=== PATIENT | female | born 1950 | race Caucasian/White ===

== ENCOUNTER → 2020-05-17 10:11 | Outpatient (CLI) | payer MEDICARE, OTHER, SELFPAY ==
--- NOTE | 2020-05-17 | DI.RAD.S_ITS ---
PROCEDURE: FL BARIUM SWALLOW W SPEECH INDICATIONS: DYSPHAGIA COMPARISON: None. TECHNIQUE: Examination was conducted in conjunction with speech pathology per standard protocol. In the lateral projection, filming was performed of the patient swallowing. AP projection filming may also be performed with patient swallowing. COMPARISON: FINDINGS: Function: The oral preparatory phase appears normal, with proper containment. The subsequent oral propulsive phase, pharyngeal phase, and esophageal phase of swallowing also appear normal with all proffered substances. No laryngotracheal penetration or aspiration. No pathologic vallecular pooling. Morphology: No cricopharyngeal bar is identified. No cervical esophageal webs. No Zenker's diverticulum. No strictures. IMPRESSION: No acute disease found, please also refer to the dedicated speech therapy swallowing evaluation report, which will be independently generated. Dictated by: Asim Griffiths M.D. on 05/17/2020 at 11:40 Approved by: Asim Griffiths M.D. on 05/17/2020 at 11:40
--- NOTE | 2020-05-17 17:27 | ST.SWALLOW ---
Visit Care Team Role Provider Type Attending Provider Primary Care Provider Referring Provider Specialty: Address: Phone: Fax: Email: ST Modified Barium Swallow Study [employer] Modified Barium Swallow Study Start: 05/17/20 16:26 Freq: Status: Active Protocol: Document 05/17/20 16:27 LNK (Rec: 05/17/20 17:26 LNK [id number]) Modified Barium Swallow Study Total Time Visit Start Time 10:30 Visit Stop Time 11:00 Total Visit Minutes [address] Travis Reason for Referral difficulty swallowing Setting Setting Outpatient Care Patient Information Identification Type Name,Date of Patient History Pt was seen for a Modified Barium Swallow Study (MBSS). She was referred by her physician secondary to difficulty swalloiwng. Pt described her swallowing as being like swallowing a telephone pole. She described her swallowing as being effortful and at times she needs to lift up her arms like a touchdown in order for her foods/liquids to pass into her esophagus. She also reported choking at times, especially with rice, crackers and potatoes (i.e., hashbrowns). Additionally, pt reported tighness in her neck on the right side and descibs foods sticking in her throat , pointing to her sternal notch area. Pt has a medical history of an ACDF that required posterior and anterior approaches to her cervical spine secondary to cervical stenosis. This surgery was in March 2017. The pt's medical records regarding her surgery and inpatient followup were reviewed prior to the MBSS. Subjective Observations Pt appeared to be anxious, indicating that she could not swallow her saliva while she was describing her medical history. She spoke rapidly and had a notebook with her that had questions she wanted to ask. All questions were answered, referred back to her physician as needed. Pt was seated in the fluoroscopy chair. Instructions and procedures were described for the pt, who indicated she understtod and agreed to proceed. Patient Positioning Position View Lateral Imaging Lateral View Textures Administered Trials Presented Thin Liquid via Spoon,Thin Liquid via Cup,Pudding Thick Liquid via Spoon,Regular Textures,Barium Tablet Oral Phase Source: MBSIMP (TM) (C) Bolus Specific Scoring Grid Lip Closure WFL Tongue Control During Bolus Hold WFL Bolus Prep/Mastication WFL Bolus Transport/Lingual Motion Mild Impairment A/P Lingual Propulsion Delay Yes Oral Residue Minimal Impairment Residue Clearing Minimal Impairment Nasal Regurgitation No Additional Oral Phase Observations Pt's OME indicated dentition of natural teeth and partial denture (upper). There were missing teeth on the lower arch. Diadochokinesis was WNL. For both liquids and solids, the pt demonstrated difficulty with A-P propulsion of the bolus, requiring her to throw her head back in order to swallow. At times this movement creating difficulty with reading the video. Pharyngeal Phase Source: MBSIMP (TM) (C) Bolus Specific Scoring Grid Delayed Initiation of Pharyngeal Swallow Yes: Premature spillage to the valeculla Soft Palate Elevation WFL Tongue Base Strength/Range of Motion Minimal Impairment Residue Along the Tongue Base Yes Clearance of Residue Along Tongue Base Minimal Impairment Laryngeal Elevation Moderate Impairment Anterior Hyoid Movement Moderate Impairment Epiglottic Range of Motion WFL Vallecular Residue Yes Clearance of Vallecular Residue Mild Impairment Laryngeal Vestibular Closure WFL Pharyngeal Stripping Wave Mild Impairment Posterior Pharyngeal Wall Residue Yes Clearance of Posterior Pharyngeal Wall Minimal Impairment Residue Upper Esophageal Sphincter Opening Moderate Impairment Residue in the Pyriform Sinuses Yes Clearance of Residue in the Pyriform Minimal Impairment Sinuses Esophageal Clearance Upright Position WFL Pharyngoesophageal Backflow Observed No Additional Pharyngeal Phase Observations Premature spillage to the valeculla was observed. Hyolaryngeal elevation was reduced for both the forward movement of the hyoid and the elevation of the larynx. This did not impact the epiglottal inversion nor the laryngeal vestibular seal. However there there was tongue base weakness noted that resulted in pooling with in the valeculla, the pyriform sinuses and the posterior pharyngeal wall. The pooling was cleared with subsequent swallows. No penetration or aspiration was observed. The pharynx shape appeared to be directly impacted by the ACDF cage and hardware. The upper portion of the pharynx was curved anteriorly from the oropharynx to the laryngopharynx. At the laryngopharynx, there was a narrowing of the pharynx to the UES. The pt's swallows appeared to be effortful in that she had her head back and seemed to force the swallow . A/P View A/P View Observations Additional Observations In addition to the observations noted above, there appeared to be a limited opening of the UES along with limited duration of that opening. This, along with the narrowing of the pharynx, may explain the effort the pt seems to need in order for her to swallow. Her difficulty swallowing does not appear to be oropharyngeal dysphagia, but rather a mechanical effect of the ACFD surgery and the hardware needed to address her cervical stenosis. As a result, Dysphagia therapy is not warranted at this point. Possible a referral to GI to address the narrowed UES may be necessary Clinical Impressions Dysphagia Type None Patient Appropriate for Therapy No Recommendations Treatment Plan Recommended Referrals Primary Care Physician,GI Consult
== END ==
PROVIDERS: PCP Family Medicine; Referring Provider Family Medicine; Visit Provider Family Medicine
DX: R13.14 Dysphagia, pharyngoesophageal phase (principal)
CPT/HCPCS: 74230; 92611

== ENCOUNTER → 2021-08-14 18:37 | Outpatient (CLI) | payer MEDICARE, OTHER, SELFPAY ==
--- NOTE | 2021-08-14 18:42 | DI.MRI.S_ITS ---
PROCEDURE: MR SHOULDER LT WO CON INDICATIONS: pain in left shoulder TECHNIQUE: Noncontrast oblique coronal T2 fast spin echo with fat saturation, oblique sagittal T1 spin echo and T2 fast spin echo with fat saturation, axial T1 spin echo and T2 fast spin echo with fat saturation through the shoulder. COMPARISON: [facility], CR, XR SHOULDER 2+ VIEWS LEFT, 06/20/2021, 9:58. [facility], MR, SHOULDER WITHOUT CONTRAST, 02/14/2017, 17:05. FINDINGS: Image quality: Excellent. Rotator cuff: There is mild tendinopathy of the supraspinatus and infraspinatus with a mild bursal surface partial-thickness tear involving the anterior fibers extending to the leading edge. This measures approximately 1.2 cm in anteroposterior dimension. No full-thickness tear or tendon retraction. There is minimal bursal surface fraying in the distal infraspinatus. There is mild tendinopathy of the subscapularis with mild partial tearing distally at its insertion. Teres minor appears intact. Sagittal images demonstrate no fatty muscle atrophy. Bones and bursae: No bone marrow contusions or fractures. No acromioclavicular joint degeneration. The acromion demonstrates conventional anatomy, without an os acromiale. A small amount of subacromial/subdeltoid bursal fluid is present. Capsule and soft tissues: There is mild degenerative signal within the posterosuperior labrum. The long head of the biceps tendon demonstrates mild segmental tendinopathy proximally with mild intrasubstance longitudinal partial tearing. There is slight medial displacement of the biceps tendon secondary to partial tearing of the subscapularis. The rotator interval appears normal, without fibrosis. The coracohumeral ligament is normal in thickness. IMPRESSION: 1. Mild partial-thickness bursal surface tearing in the distal supraspinatus involving its anterior fibers without a full-thickness tear or tendon retraction. Mild bursal surface fraying also noted in the distal infraspinatus. Findings appear similar to the prior study. 2. Mild tendinopathy with mild partial tearing at its insertion appear progressed compared to the prior study. 3. Segmental tendinopathy in the proximal biceps tendon with mild interstitial longitudinal partial tearing as well as slight medial subluxation secondary to partial tearing of the subscapularis. 4. Small amount of subacromial/subdeltoid bursal fluid. Dictated by: Oz Canada M.D. on 08/15/2021 at 13:26 Approved by: Oz Canada M.D. on 08/15/2021 at 13:41
== END ==
PROVIDERS: PCP Family Medicine; Referring Provider Orthopaedic Surgery; Visit Provider Orthopaedic Surgery
DX: M75.112 Incomplete rotator cuff tear or rupture of left shoulder, not specified as traumatic (principal); M25.512 Pain in left shoulder
CPT/HCPCS: 73221

== ENCOUNTER 2021-10-30 15:15 | Outpatient (RCR) | payer OTHER, SELFPAY ==
--- NOTE | 2021-10-08 17:15 | PT.OPPOC ---
Physical, Occupational & Speech Therapy At [facility] Current Diagnoses Stiffness of unspecified shoulder, not elsewhere classified (10/08/21) Cervicalgia (10/08/21) Muscle weakness (generalized) (10/08/21) Strain of muscle, fascia and tendon at neck level, initial encounter (10/08/21) Visit Care Team Role Provider Type Lobo Bah MD Primary Care Provider Non-Staff Specialty: Family Practice Address: [address] [place] [address], [id number] Email: Hernán Senior MD Attending Provider Physician Family Provider Referring Provider Specialty: Orthopedic Surgery Address: [address] [place] [address], [id number] Email: Plan Of Care PT-OP-T Assessment and Plan Start: 10/05/21 16:29 Freq: Status: Active Protocol: Document 10/08/21 09:02 LRN (Rec: 10/08/21 12:45 LRN [id number]) Physical Therapy Assessment Rehab Potential Rehabilitation Potential Fair Evaluation Complexity Number of Personal Factors/Comorbidities 3 or More Number of Body Systems Impaired 4 or More Clinical Presentation at Evaluation Evolving Impairments Impairments Activity Tolerance,Pain,ROM, Soft Tissue Mobility,Strength Goals Four Impairment Decrease neck pain Impairment Sharp burning pain 6-7/10 with reading. Skilled Nursing Goal (LTG) Improve neck static positioning tolerance for reading 15' or more with tolerable pain. LTG Duration 12/21/21 Three Impairment Improve shoulder mobility Impairment Shoulder pain rated 4/10. AROM in deg's (sitting): Flex 167 R, 145 L; AB 153 R, 155 L . Skilled Nursing Goal (LTG) Improve bilateral shoulder AROM in order to decrease shoulder pain when pt reachs up (to cupboards) with pain 1- 2/10. LTG Duration 12/21/21 Two Impairment Decreasing pain in neck/ shoulder Impairment Neck & bilateral shoulder pain rated 4/10, sleeping 3 hours at a time per night. Skilled Nursing Goal (LTG) Decrease neck/shoulder pain to 2/10 or less to improve hours of sleep at night, up to 4 hours at a time per night. LTG Duration 12/21/21 One Impairment Pt lacks self care HEP Short Term Goal (STG) Pt will be independent in a self care HEP of cervical Isometric and AROM ex's STG Duration 10/19/21 Skilled Nursing Goal (LTG) Pt will be independent in a self care HEP of shoulder strenghthening ex's and self STM of well healed scars of the neck. LTG Duration 12/21/21 Assessment Summary Assessment Pt presents with soft tissue dysfuntion of the neck and shoulders due to mechanical changes in the cervical spine. The pt appears to also have decreased tissue mobility due to scar tissue binding at her well healed scars of the upper back and neck. She has weakness in her neck and shoulders with the left side being worse than the right. The pt is finding her neck pain limits her ability to static positioning and sleeping at night due to pain. It is not expected that we will be limited in improving her neck mobility due to the hardware in her neck limiting mobility, but improving her strength may help improve her neck stability and tolerance to static positioning for activity such as reading. She has limited bilateral shoulder mobility and weakness (L>R) interferring with her ability to reach overhead to high cupboards. Mobilization of the thoracic spine and use of K-tape to improve scar mobility may help to improve her shoulder mobility. The pt will benefit from skilled phyiscal therapy to work towards achieving the above stated goals. Physical Therapy Plan Frequency and Duration Duration of Treatment 8 weeks Plan of Care Start Date 10/08/21 Plan of Care End Date 12/21/21 Therapeutic Interventions Therapeutic Interventions Aquatic Therapy,Home Exercise Program,Joint Mobilizations, Manual Therapy,Neuromuscular Re-education,Patient/Caregiver Education,Self-Care/Home Management,Soft Tissue Mobilization,Taping, Therapeutic Activities, Therapeutic Exercises Modalities Cold Pack/Ice Massage,Hot Packs Other Referrals/Consults Referrals/Consults Recommended Speech referral to assess and treat for swallowing difficulty. Next Visit Focus/Plan Next Note Type Treatment Note Next Visit Plan STM of neck/upper back, JMT for thoracic spine and bilateral shoulders, Ther Ex w/HEP: Neck AROM, shoulder AROM, postural correction ex' s (including pec stretch) Strengthening: Bill cervical and Conc/Ecc bilateral shoulders. End MH or cryotherapy. Plan of Care Dates Plan of Care Start Date 10/08/21 Plan of Care End Date 12/21/21 Electronically Signed by: Lashanda Danielle, PT 10/08/21 1752 If you are in agreement with this Plan of Care, please return a signed and dated copy. I have reviewed this Plan of Care and certify that the skilled therapy services above are required to meet the patient?s needs. Physician Signature Date Printed Name and Credentials Clinical Instructor Signature Printed Name and Credentials
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
== END 2021-10-31 13:27 ==
LOC: PHYS 15:15
PROVIDERS: Family Provider Orthopaedic Surgery; PCP Family Medicine; Referring Provider Orthopaedic Surgery; Visit Provider Orthopaedic Surgery
DX: M54.2 Cervicalgia (principal); S16.1XXA Strain of muscle, fascia and tendon at neck level, initial encounter; M62.81 Muscle weakness (generalized); M25.619 Stiffness of unspecified shoulder, not elsewhere classified
CPT/HCPCS: 97110; 97140; 97162; 97535

== ENCOUNTER 2022-01-15 12:30 | Outpatient (RCR) | payer OTHER, MEDICARE, SELFPAY ==
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
--- NOTE | 2021-12-05 16:07 | ST.IPDYTX ---
Visit Care Team Role Provider Type Lobo Bah MD Family Provider Non-Staff Primary Care Provider Specialty: Family Practice Address: [address] [place] [address], [id number] Email: Hernán Senior MD Attending Provider Physician Referring Provider Specialty: Orthopedic Surgery Address: [address] [place] [address], [id number] Email: DRILL SHARPENER OPERATOR Dysphagia Treatment DRILL SHARPENER OPERATOR Clinical Instructor Line Start: 11/28/21 16:59 Freq: Status: Active Protocol: Document 12/05/21 16:06 ERA (Rec: 12/05/21 16:07 ERA [id number]) Clinical Instructor Signature Clinical Instructor Clinical Instructor Yes DRILL SHARPENER OPERATOR Dysphagia Treatment Start: 12/05/21 14:11 Freq: Status: Active Protocol: Document 12/05/21 14:13 EK (Rec: 12/05/21 14:23 EK [id number]) Dysphagia Treatment Session Time Visit Start Time 10:30 Visit Stop Time 11:30 Total Visit Minutes 60 Visit Information Visit Number Treatment Visit 2 Plan of Care Dates 11/28/21-03/25/22 Insurance Information Apirion Injury Setting Assessment Location Outpatient Care Visit Type Note Type Treatment Note Next Note Type Next Note Type Treatment Note Patient Information Identification Type Name Subjective Observations Pt arrived on time and unaccompanied. Pt reported that yesterday she had a choking episode. Pt stated that she suspects this episode occurred because she was eating too much too quickly. Session conducted and note written by student DRILL SHARPENER OPERATOR Laurel Shea under DRILL SHARPENER OPERATOR supervision. Treatment Liquids Trialed Thin Pharyngeal Strategies Sitting Upright (90 deg),Chin Tuck Treatment Activities Pt sipped water over the course of the session. Pt drank in a timely manner but occasionally utilized a rocking head motion to transport bolus. Pt reported that at times, she can feel residue from water in her throat which most clears with a head tilt up or chin tuck. Education provided RE the possible benefits the pt is experiencing from utilizing these strategies. No overt signs of penetration or aspiration were noted. Education RE normal vs abnormal swallow function was provided orally and with animated video. Trained pt in exercises to increase airway protection, base of tongue strength, pharyngeal clearance . The pt performed all exercises as instructed. Will monitor and adapt exercises as needed. Assessment Patient Response to Treatment Good Rehab Potential Good Assessment of Improvement The pt demonstrated good understanding of all education and training provided today and was able to perform exercises as instructed. She demonstrated good understanding of previously provided education by reporting that she is working to increase her awareness while eating and take smaller and slower bites/sips during meals. Diet Recommendations Recommendations Continue Current Diet Liquids Order Thin Diet Order Mechanical Soft Medication Recommendations As Tolerated Aspiration Precautions Recommended Precautions Upright at 90 Degrees, Alternate Liquids/Solids,Small Bites/Sips Treatment Plan Appropriate for Continued Therapy Yes Therapy Recommendations Continue POC. Dysphagia Goals STG 1. Pt will independently implement safe swallow strategies. 2. Pt will perform swallow exercises in order to improve orapharyngeal function. 3. Pt will utilize strategies to reduce anxiety contributing to dysphagia and vocal quality. LTG 1. Pt will be consistent with HEP to improve and maintain swallow function. 2. Will decrease feelings of stress around swallowing as measured by EAT-10.
--- NOTE | 2021-12-12 12:57 | ST.IPDYTX ---
Visit Care Team Role Provider Type Lobo Bah MD Family Provider Non-Staff Primary Care Provider Specialty: Family Practice Address: [address] [place] [address], [id number] Email: Hernán Senior MD Attending Provider Physician Referring Provider Specialty: Orthopedic Surgery Address: [address] [place] [address], [id number] Email: FORMAL SERVICE WAITER Dysphagia Treatment FORMAL SERVICE WAITER Clinical Instructor Line Start: 11/28/21 16:59 Freq: Status: Active Protocol: Document 12/12/21 12:34 MG (Rec: 12/12/21 12:34 MG [id number]) Clinical Instructor Signature Clinical Instructor Clinical Instructor Yes: Afua Gonzalez MA, [facility]-FORMAL SERVICE WAITER FORMAL SERVICE WAITER Dysphagia Treatment Start: 12/05/21 14:11 Freq: Status: Active Protocol: Document 12/12/21 11:38 EK (Rec: 12/12/21 12:29 EK [id number]) Dysphagia Treatment Session Time Visit Start Time 09:33 Visit Stop Time 10:20 Total Visit Minutes 47 Visit Information Visit Number Treatment Visit 2 Plan of Care Dates 11/28/21-03/25/22 Insurance Information Apirion Injury Setting Assessment Location Outpatient Care Visit Type Note Type Treatment Note Next Note Type Next Note Type Treatment Note Patient Information Identification Type Name Subjective Observations Pt arrived on time and unaccompanied. Pt reported that she feels her swallow has improved over the course of this last week, partially due to exercises partially due to increased awareness. Session conducted and note written by student FORMAL SERVICE WAITER Laurel Shea under CORETTA Caal's supervision. Treatment Liquids Trialed Thin Pharyngeal Strategies Sitting Upright (90 deg),Chin Tuck Treatment Activities Reviewed HEP with pt to ensure correct follow through of exercises at home. Pt reported difficulty with completing the Romina maneuver due to dryness in her mouth. Instructed pt to take sips of water in between repetitions of the maneuver, pt stated this made completion of this task better. Provided education RE the specific impacts of recommended exercises (e.g. strengthening tongue base to increase epiglottic inversion) . Pt reported that she sometimes feels residue ?in her throat?, education provided RE strategies to assist in clearing residue such as alternating liquids and solids, double swallow, and effortful swallow. No solid trials today but pt sipped water throughout the course of the session. Occasional throat clear following sips was noted but unsure if this is related to the swallow or if there was another reason for the throat clearing. Assessment Patient Response to Treatment Good Rehab Potential Good Assessment of Improvement The pt demonstrated good understanding of all education and training provided today. Pt was able to perform exercises as instructed and was responsive to feedback. Diet Recommendations Recommendations Continue Current Diet Liquids Order Thin Diet Order Mechanical Soft Medication Recommendations As Tolerated Aspiration Precautions Recommended Precautions Upright at 90 Degrees, Alternate Liquids/Solids,Small Bites/Sips Treatment Plan Appropriate for Continued Therapy Yes Therapy Recommendations Continue POC. Dysphagia Goals STG 1. Pt will independently implement safe swallow strategies. 2. Pt will perform swallow exercises in order to improve orapharyngeal function. 3. Pt will utilize strategies to reduce anxiety contributing to dysphagia and vocal quality. LTG 1. Pt will be consistent with HEP to improve and maintain swallow function. 2. Will decrease feelings of stress around swallowing as measured by EAT-10.
--- NOTE | 2021-12-26 15:22 | ST.IPDYTX ---
Visit Care Team Role Provider Type Lobo Bah MD Family Provider Non-Staff Primary Care Provider Specialty: Family Practice Address: [address] [place] [address], [id number] Email: Hernán Senior MD Attending Provider Physician Referring Provider Specialty: Orthopedic Surgery Address: [address] [place] [address], [id number] Email: MAPLE SYRUP MAKER Dysphagia Treatment MAPLE SYRUP MAKER Clinical Instructor Line Start: 11/28/21 16:59 Freq: Status: Active Protocol: Document 12/26/21 12:46 ERA (Rec: 12/26/21 12:46 ERA [id number]) Clinical Instructor Signature Clinical Instructor Clinical Instructor Yes MAPLE SYRUP MAKER Dysphagia Treatment Start: 12/05/21 14:11 Freq: Status: Active Protocol: Document 12/26/21 12:21 EK (Rec: 12/26/21 12:36 EK [id number]) Dysphagia Treatment Session Time Visit Start Time 10:30 Visit Stop Time 11:25 Total Visit Minutes 55 Visit Information Visit Number Treatment Visit 2 Plan of Care Dates 11/28/21-03/25/22 Insurance Information Apirion Injury Setting Assessment Location Outpatient Care Visit Type Note Type Treatment Note Next Note Type Next Note Type Treatment Note Patient Information Subjective Observations Pt arrived on time and unaccompanied. Pt reported that she feels her swallow has continued to improve with no choking episodes over the last two weeks. Session conducted and note written by student MAPLE SYRUP MAKER Laurel Shea under MAPLE SYRUP MAKER supervision. Treatment Liquids Trialed Thin Solids Trialed Puree,Dysphagia Mechanical, Regular Pharyngeal Strategies Sitting Upright (90 deg), Effortful Swallow,Small Bites and Sips,Alternate Liquids/ Solids Treatment Activities Assessed the pt's swallow with thin liquid as well as regular texture, dysphagia mechanical, and puree texture. The pt took appropriate sized sips/bites and chewed food in a timely manner. With regular textures, she independently chewed slightly slower to ensure proper mastication before initiating the swallow. No overt signs of penetration /aspiration were noted and pt reported no sensation of residue. Pt consistently cleared her throat throughout the session and reported this was due to her throat feeling dry and not related to her swallow. Pt performed all exercises and was receptive to skilled feedback. Provided education RE how the exercises and increased awareness have improved her overall swallow function. Assessment Patient Response to Treatment Good Rehab Potential Good Assessment of Improvement Pt continues to demonstrate good understanding of education and training provided during treatment. Pt reports improvement in her swallow which was also seen during PO trials with no overt signs of penetration/ aspiration. Pt demonstrated improvement with her ability to complete the richar maneuver which indicates that she has been following the HEP. Diet Recommendations Recommendations Continue Current Diet Liquids Order Thin Diet Order Mechanical Soft Medication Recommendations As Tolerated Aspiration Precautions Recommended Precautions Upright at 90 Degrees, Alternate Liquids/Solids,Small Bites/Sips Treatment Plan Appropriate for Continued Therapy Yes Therapy Recommendations Continue POC. Dysphagia Goals STG 1. Pt will independently implement safe swallow strategies. 2. Pt will perform swallow exercises in order to improve orapharyngeal function. 3. Pt will utilize strategies to reduce anxiety contributing to dysphagia and vocal quality. LTG 1. Pt will be consistent with HEP to improve and maintain swallow function. 2. Will decrease feelings of stress around swallowing as measured by EAT-10.
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
--- NOTE | 2022-02-26 16:38 | ST.IPDYTX ---
Visit Care Team Role Provider Type Lobo Bah MD Family Provider Non-Staff Primary Care Provider Specialty: Family Practice Address: [address] [place] [address], [id number] Email: Hernán Senior MD Attending Provider Physician Referring Provider Specialty: Orthopedic Surgery Address: [address] [place] [address], [address] Email: WATERPROOF BAG CUTTING MACHINE OPERATOR Dysphagia Treatment WATERPROOF BAG CUTTING MACHINE OPERATOR Clinical Instructor Line Start: 11/28/21 16:59 Freq: Status: Active Protocol: Document 12/26/21 12:46 ERA (Rec: 12/26/21 12:46 ERA [id number]) Clinical Instructor Signature Clinical Instructor Clinical Instructor Yes WATERPROOF BAG CUTTING MACHINE OPERATOR Dysphagia Treatment Start: 12/05/21 14:11 Freq: Status: Active Protocol: Document 02/26/22 16:35 LNK (Rec: 02/26/22 16:38 LNK [id number]) Dysphagia Treatment Visit Information Insurance Information Apirion Injury Setting Assessment Location Outpatient Care Visit Type Note Type Discharge Summary Assessment Assessment of Improvement Pt has not been seen for treatment since 01/15/22. Will discharge Treatment Plan Appropriate for Continued Therapy No Therapy Recommendations Discharge at this time
== END 2022-02-27 12:13 ==
LOC: SP 12:30
PROVIDERS: Family Provider Family Medicine; PCP Family Medicine; Referring Provider Orthopaedic Surgery; Visit Provider Orthopaedic Surgery
DX: S16.1XXA Strain of muscle, fascia and tendon at neck level, initial encounter (principal); Z98.1 Arthrodesis status; R13.10 Dysphagia, unspecified
CPT/HCPCS: 92526; 92610

== ENCOUNTER → 2022-03-07 13:38 | Outpatient (CLI) | payer MEDICARE, OTHER, SELFPAY ==
--- NOTE | 2022-03-07 | DI.RAD.S_ITS ---
PROCEDURE: [place] BARIUM SWALLOW INDICATIONS: Arthrodesis status COMPARISON: [facility], , [place] BARIUM SWALLOW W SPEECH, 05/17/2020, 11:45. FINDINGS: Function: There is normal esophageal peristalsis. No elicited gastroesophageal reflux. Incomplete emptying of the esophagus is noted at multiple points during the exam with subsequent clearing after repeated attempts to swallow secretions. A small amount of gastrojejunal reflux is seen in the lower esophagus with provocative maneuvers. Morphology: Air-contrast images demonstrate normal mucosal morphology. There is a small hiatal hernia. Narrowing of the distal esophagus is seen at the level of the gastroesophageal junction, which does not allow for passage of a calibrated barium tablet into the stomach. Single contrast views show no esophageal strictures, extrinsic mass effects, or diverticula. Limited images of the stomach demonstrate normal appearance. IMPRESSION: 1. Narrowing of the distal esophagus at the level of the gastroesophageal junction, which does not allow for passage of a calibrated barium tablet. 2. Small hiatal hernia. 3. Intermittent closure of the lower esophageal sphincter prior to complete emptying of the esophagus. Subsequent esophageal clearance is seen after additional swallowing attempts. 4. Mild gastroesophageal reflux into the lower esophagus with provocative maneuvers. Dictated by: Vahid Herrera M.D. on 03/07/2022 at 16:31 Approved by: Vahid Herrera M.D. on 03/07/2022 at 16:42
== END ==
PROVIDERS: Family Provider Family Medicine; PCP Family Medicine; Referring Provider Orthopaedic Surgery; Visit Provider Orthopaedic Surgery
DX: Z98.1 Arthrodesis status (principal); K44.9 Diaphragmatic hernia without obstruction or gangrene; K21.9 Gastro-esophageal reflux disease without esophagitis; K22.89 Other specified disease of esophagus
CPT/HCPCS: 74220